=== PATIENT | female | born 1960 | race Caucasian/White ===

== ENCOUNTER 2025-09-26 09:44 | Emergency (ER) | payer MEDICAID ==
[~2025-09-26] VITALS: Ht 167.6 cm; Wt 72.0 kg
[2025-09-26 09:50] VITALS: O2SAT 99
[2025-09-26 10:11] VITALS: BP 109/51; PULSE 78; RESP 16; TEMP 37; O2SAT 95
[2025-09-26 11:53] LABS: BASOPHILS % 0.6 % (0.0-2.0); EOSINOPHILS % 3.7 % (0.0-5.0); HEMATOCRIT. 36.9 % (36.0-48.0); HEMOGLOBIN. 12.2 g/dL (12.0-16.0); LYMPHOCYTES % 39.4 % (20.0-50.0); MEAN PLATELET VOLUME 7.8 fl (7.4-10.4); MONOCYTES % 9.1 % (2.0-8.0); NEUTROPHILS % 47.2 % (40.0-76.0); PLATELET 272 x1000/uL (130-400); RED BLOOD CELL COUNT 4.15 mill/uL (4.2-5.4); RED CELL DISTRIBUTION WIDTH 14.2 % (11.6-14.6)
[2025-09-26 12:11] LABS: CREATININE 0.6 mg/dL (0.6-1.0); UREA NITROGEN BLOOD 6 mg/dL (9-23)
[2025-09-26 12:13] LABS: ASPARTATE AMINOTRANSFERASE 17 IU/L (<34)
[2025-09-26 12:14] LABS: BILIRUBIN TOTAL 0.4 mg/dL (0.1-1.0); PROTEIN TOTAL 7.5 g/dL (6.0-8.3)
== END 2025-09-26 14:29 | disposition home or self-care (01) ==
LOC: ER 09:44
DX: R53.1 Weakness (principal)
CPT/HCPCS: 36415; 80053; 85025; 93005; 99284

== ENCOUNTER 2025-10-08 01:27 | Emergency (ER) | payer MEDICAID ==
[~2025-10-08] VITALS: Ht 162.6 cm; Wt 102.0 kg
[2025-10-08 01:29] VITALS: O2SAT 100
[2025-10-08] MEDS ORDERED: DIVA-18 MT (06:01)
[2025-10-08] MEDS: DIVALPROEX SODIUM 250MG ER TABLET PO ONE (06:27)
[2025-10-08 06:29] VITALS: BP 127/66; PULSE 92; RESP 16; TEMP 37; O2SAT 98
== END 2025-10-08 06:54 | disposition home or self-care (01) ==
LOC: ER 01:27
DX: G40.909 Epilepsy, unspecified, not intractable, without status epilepticus (principal); F31.9 Bipolar disorder, unspecified; Z59.01 Sheltered homelessness; Z76.0 Encounter for issue of repeat prescription; Z79.899 Other long term (current) drug therapy
CPT/HCPCS: 99283; Z7610